=== PATIENT | male | born 1965 | race Caucasian/White ===

== ENCOUNTER 2018-03-16 07:22 | Day surgery (SDC) | payer OTHER ==
[~2018-03-16] VITALS: Ht 188 cm; Wt 145.2 kg
[~2018-03-16 07:22] MED LIST: NAPR220
== END 2018-03-16 09:47 | disposition home or self-care (01) ==
LOC: ORSCSDS 07:22
PROVIDERS: Internal Medicine Gastroenterology
PROC: 0DBM8ZX Excision of Descending Colon, Via Natural or Artificial Opening Endoscopic, Diagnostic (ICD-10-PCS; principal; 2018-03-16 08:45)
PROC: 0DBP8ZX Excision of Rectum, Via Natural or Artificial Opening Endoscopic, Diagnostic (ICD-10-PCS; principal; 2018-03-16 08:45)
DX: Z12.11 Encounter for screening for malignant neoplasm of colon (principal); K63.5 Polyp of colon; K62.1 Rectal polyp
CPT/HCPCS: 88305; J2250; J7120

== ENCOUNTER 2024-04-26 23:11 | Emergency (ER) | payer OTHER ==
[~2024-04-26] VITALS: Ht 182.9 cm; Wt 102.1 kg
[2024-04-26 23:18] VITALS: BP 190/121
== END 2024-04-26 23:42 | disposition home or self-care (01) ==
LOC: ER 23:11
DX: I83.891 Varicose veins of right lower extremity with other complications (principal); Z79.899 Other long term (current) drug therapy
CPT/HCPCS: 99282